=== PATIENT | male | born 1955 | race Caucasian/White ===

== ENCOUNTER 2021-12-30 07:17 | Day surgery (SDC) | payer MEDICARE ==
[2021-12-28 14:05] VITALS: BMI 27.5
[2021-12-30] MEDS ORDERED: Midazolam HCl 2 mg/2 ml Vial ONE (09:47)
[2021-12-30] MEDS ORDERED: PROPOFOL 40 ML ONE (09:47)
== END 2021-12-30 11:00 | disposition home or self-care (01) ==
LOC: CSHSDC 07:17
PROVIDERS: ATTEND Internal Medicine Gastroenterology
PROC: 0DJD8ZZ Inspection of Lower Intestinal Tract, Via Natural or Artificial Opening Endoscopic (ICD-10-PCS; principal; 2021-12-30)
DX: Z12.11 Encounter for screening for malignant neoplasm of colon (principal); K64.9 Unspecified hemorrhoids; Z86.010 Personal history of colon polyps; E78.5 Hyperlipidemia, unspecified; I25.10 Atherosclerotic heart disease of native coronary artery without angina pectoris; Z95.1 Presence of aortocoronary bypass graft
CPT/HCPCS: J2250; J2704